=== PATIENT | female | born 1965 | race Caucasian/White ===

== ENCOUNTER → 2024-09-24 10:06 | Outpatient (REF) | payer OTHER, SELFPAY | LOC: RAD 10:06 | PROVIDERS: ATTENDING PHYSICIAN Podiatrist Foot Surgery; FAMILY PHYSICIAN Internal Medicine | DX: M86.179 Other acute osteomyelitis, unspecified ankle and foot (principal) | CPT/HCPCS: 78315; A9503 ==

== ENCOUNTER → 2024-09-28 07:05 | Outpatient (REF) | payer OTHER, SELFPAY | LOC: RAD 07:05 | PROVIDERS: ATTENDING PHYSICIAN Podiatrist Foot Surgery; FAMILY PHYSICIAN Internal Medicine | DX: M86.179 Other acute osteomyelitis, unspecified ankle and foot (principal) | CPT/HCPCS: 78803; A9569 ==

== ENCOUNTER → 2025-07-20 08:26 | Outpatient (REF) | payer OTHER, SELFPAY ==
[2025-07-20 09:02] VITALS: BP 126/83; BP_SYST 74
== END ==
LOC: RADI 08:26
PROVIDERS: ATTENDING PHYSICIAN Internal Medicine
DX: E04.1 Nontoxic single thyroid nodule (principal)
CPT/HCPCS: 10005; 88173